=== PATIENT | female | born 1995 | race Caucasian/White ===

== ENCOUNTER 2023-03-06 00:03 | Inpatient (IN) | payer OTHER ==
[~2023-03-06 00:03] MED LIST: Carboprost Tromethamine 250 MCG/1 ML Amp IM PRN; Lidocaine 1% 30 ML SDV INJECT PRN; Methylergonovine 0.2 MG/1 ML Amp IM PRN; Misoprostol 400 MCG (4 X 100 MCG TAB) RECTAL PRN; Ondansetron 4 MG/2 ML SDV IVPUSH PRN; Sodium Chloride 0.9% 10 ML Syringe FLUSH PRN; Tranexamic Acid 1,000 MG in Sodium Chloride 0.9% 100 ML IV PRN
[2023-03-06 00:48] LABS: HEMOGLOBIN 11.5 g/dL (12.0-16.0); MEAN CORPUSCULAR HEMOGLOBIN 31.7 pg (27.0-34.0); MEAN CORPUSCULAR HGB CONC 33.8 g/dL (33.0-35.0); MEAN CORPUSCULAR VOLUME 93.7 fL (80-100); RED BLOOD CELL COUNT 3.63 10^6/uL (4.2-5.4); WHITE BLOOD CELL COUNT,WBC 10.6 10^3/uL (5.0-10.0)
[2023-03-06] MEDS: Lactated Ringers 1,000 ML IV SCH ×4 (00:49→17:45)
[2023-03-06] MEDS: Oxytocin/Normal Saline 30 UNIT/500 ML BAG IV SCH ×3 (00:50→18:08)
[2023-03-06] MEDS: Sodium Chloride 0.9% 10 ML Syringe FLUSH SCH ×2 (02:05→21:34)
[2023-03-06] MEDS ORDERED: ePHEDrine 50 MG/ML SDV IVPUSH PRN (13:05)
[2023-03-06] MEDS ORDERED: Phenylephrine HCl In 0.9% NaCl 1 MG/10 ML Syringe IVPUSH PRN (13:05)
[2023-03-06] MEDS ORDERED: Ropivacaine 200 MG in Premix Bag 1 BAG EPIDUR SCH (13:15)
[2023-03-06] MEDS ORDERED: fentaNYL 100 MCG/2 ML SDV ONE (16:36)
[2023-03-06] MEDS ORDERED: Simethicone 80 MG Tab.Chew PO PRN (17:03)
[2023-03-06] MEDS ORDERED: Benzocaine/Menthol 20%-0.5% Spray 78 GM Cannister TOP PRN (17:03)
[2023-03-06] MEDS ORDERED: Witch Hazel Medicated Pads 100/Jar TOP PRN (17:03)
[2023-03-06] MEDS ORDERED: ceFAZolin 1 GM Vial IVPUSH ONE (17:07)
[2023-03-06] MEDS: Ibuprofen 800 MG Tab PO PRN (17:59)
[2023-03-06] MEDS: Acetaminophen 325 MG Tab PO PRN (17:59)
[2023-03-06] MEDS: Docusate Sodium 100 MG Cap PO PRN (22:38)
[2023-03-07] MEDS: Acetaminophen 325 MG Tab PO PRN ×2 (00:01→08:39)
[2023-03-07] MEDS: Ibuprofen 800 MG Tab PO PRN ×3 (04:22→21:31)
[2023-03-07] MEDS: Sodium Chloride 0.9% 10 ML Syringe FLUSH SCH ×3 (07:09→17:39)
[2023-03-07] MEDS: Ferrous Sulfate 325 MG Tab PO SCH (08:38)
[2023-03-07] MEDS: Prenatal Multivitamin with Calcium/Folic Acid/Iron Tab PO SCH (08:38)
[2023-03-07] MEDS: Docusate Sodium 100 MG Cap PO PRN ×2 (08:39→21:31)
[2023-03-07 17:04] LABS: HEMATOCRIT 26.7 % (37.0-47.0); HEMOGLOBIN 8.8 g/dL (12.0-16.0); MEAN CORPUSCULAR HEMOGLOBIN 31.5 pg (27.0-34.0); MEAN CORPUSCULAR VOLUME 95.7 fL (80-100); RED BLOOD CELL COUNT 2.79 10^6/uL (4.2-5.4); WHITE BLOOD CELL COUNT,WBC 13.7 10^3/uL (5.0-10.0)
[2023-03-08] MEDS: Prenatal Multivitamin with Calcium/Folic Acid/Iron Tab PO SCH (08:19)
[2023-03-08] MEDS: Docusate Sodium 100 MG Cap PO PRN (08:19)
[2023-03-08] MEDS: Ibuprofen 800 MG Tab PO PRN (08:19)
[2023-03-08] MEDS: Acetaminophen 325 MG Tab PO PRN (08:20)
[2023-03-08] MEDS: Ferrous Sulfate 325 MG Tab PO SCH (08:21)
== END 2023-03-08 10:55 | disposition home or self-care (01) | DRG 806 ==
LOC: DL.OBCHECK 00:03 → UNDOADMOB 00:05 → DL.OB 00:05 → INTOOBSV 16:19 → OBSVTOIN 16:19 → DL.OB 16:19 → UNDODISIN 03-08 10:55
PROVIDERS: ADMIT Family Medicine; ATTEND Family Medicine
PROC: 10E0XZZ Delivery of Products of Conception, External Approach (ICD-10-PCS; principal; 2023-03-06)
PROC: 3E033VJ Introduction of Other Hormone into Peripheral Vein, Percutaneous Approach (ICD-10-PCS; 2023-03-06)
PROC: 00HU33Z Insertion of Infusion Device into Spinal Canal, Percutaneous Approach (ICD-10-PCS; 2023-03-06)
PROC: 10907ZC Drainage of Amniotic Fluid, Therapeutic from Products of Conception, Via Natural or Artificial Opening (ICD-10-PCS; 2023-03-06)
PROC: 3E0R3BZ Introduction of Anesthetic Agent into Spinal Canal, Percutaneous Approach (ICD-10-PCS; 2023-03-06)
PROC: 3E0P7VZ Introduction of Hormone into Female Reproductive, Via Natural or Artificial Opening (ICD-10-PCS; 2023-03-06)
PROC: 0HQ9XZZ Repair Perineum Skin, External Approach (ICD-10-PCS; 2023-03-06)
DX: O48.0 Post-term pregnancy (principal); D62 Acute posthemorrhagic anemia; Z37.0 Single live birth; O72.1 Other immediate postpartum hemorrhage; O69.81X0 Labor and delivery complicated by cord around neck, without compression, not applicable or unspecified; O70.0 First degree perineal laceration during delivery; O90.81 Anemia of the puerperium; Z3A.41 41 weeks gestation of pregnancy
CPT/HCPCS: 01960; 36415; 59409; 85027; A9270-GY; J0690; J2210; J2590; J2795; J3010; J3490; J7120